=== PATIENT | female | born 1940 | race Caucasian/White ===

== ENCOUNTER 2022-11-11 15:31 | Outpatient (CLI) | payer MEDICARE, SELFPAY | END 2022-11-11 15:32 | disposition home or self-care (01) | LOC: LKVREF 15:32 | PROVIDERS: PCP Physician Assistant Medical; Visit Provider Registered Nurse | DX: R30.0 Dysuria (principal); N39.0 Urinary tract infection, site not specified | CPT/HCPCS: 87086; 87186 ==

== ENCOUNTER 2022-11-20 10:59 | Outpatient (CLI) | payer MEDICARE, SELFPAY | END 2022-11-20 11:00 | disposition home or self-care (01) | LOC: NFLDREF 11-22 14:21 | PROVIDERS: PCP Physician Assistant Medical; Referring Provider Physician Assistant Medical; Visit Provider Physician Assistant Medical | DX: R30.0 Dysuria (principal); N76.0 Acute vaginitis; N93.9 Abnormal uterine and vaginal bleeding, unspecified; E04.9 Nontoxic goiter, unspecified; Z86.73 Personal history of transient ischemic attack (TIA), and cerebral infarction without residual deficits | CPT/HCPCS: 87086 ==

== ENCOUNTER 2022-12-06 11:50 | Outpatient (CLI) | payer MEDICARE, SELFPAY | END 2022-12-06 11:51 | disposition home or self-care (01) | PROVIDERS: PCP Physician Assistant Medical; Referring Provider Physician Assistant Medical; Visit Provider Nurse Practitioner Family | DX: N39.0 Urinary tract infection, site not specified (principal) | CPT/HCPCS: 87086; 87186 ==

== ENCOUNTER 2022-12-16 13:18 | Outpatient (CLI) | payer MEDICARE, SELFPAY ==
--- NOTE | 2022-12-16 14:00 | US_ITS ---
Final Report Patient: EDUARDO MERCER Facility:?[facility] Patient ID:?[id number] Site Patient ID:?[id number]. Site :?1940 Study:?US Pelvis -12/16/2022 2:48:55 PM Ordering Physician:Millie Harris Final Report: INDICATION: Vaginal bleeding COMPARISON: CT 04/20/2019 TECHNIQUE: 2D helton scale and color Doppler images were acquired of the pelvis using a transabdominal approach. FINDINGS: Both ovaries have been removed. No pelvic free fluid. Uterus is atrophied and measures 7.8 x 2.8 x 4.8 cm and contains a few scattered calcifications. The endometrium measures 4 millimeters. Mixed echogenicity associated with the urethra, associated with the distended proximal urethra, likely similar to the prior study. IMPRESSION: Status post bilateral oophorectomy. No uterine fibroid. Endometrium measures 4 millimeters. Dilation of the proximal urethra, as before, with indeterminate mixed echotexture associated with the orifice. Dictated by Alli Sigala MD @ 12/16/2022 3:55:19 PM (Electronic Signature)
--- NOTE | 2022-12-16 14:00 | CRLHL7_ITS ---
For Patients: As a result of the Cures Act, medical imaging exams and procedure reports are released immediately into your electronic medical record. You may view this report before your referring provider. If you have questions, please contact your health care provider. INDICATION: ENLARGED THYROID COMPARISON: 04/14/2018 TECHNIQUE: Temple scale and color Doppler images were acquired of the thyroid gland. FINDINGS: The right lobe measures 6.7 x 1.8 x 3.1 cm and the left lobe measures 10.4 x 5.2 x 5.2 cm in size. The isthmus measures 1 centimeter. Sponge like nodules within the right thyroid lobe are again noted measuring 6 x 6 x 6 millimeters and 2.1 x 1.4 x 1.3 cm. These are benign. Sponge like nodule within the left thyroid lobe has increased in size measuring 9.7 x 3.0 x 6.3 cm, previously measuring 5.3 x 5.2 x 4.1 cm. The color Doppler images demonstrate normal vascularity. There is no evidence of cervical lymphadenopathy or parathyroid mass. IMPRESSION: Enlarged thyroid particularly on the left with a large heterogeneous sponge like nodule within the left thyroid lobe measuring up to 9.7 cm. This has increased in size compared to the 2018 study. Dictated by Alli Sigala MD @ 12/17/2022 11:33:55 AM (Electronically Signed)
--- NOTE | 2022-12-16 15:00 | US_ITS ---
Final Report Patient: EDUARDO MERCER Facility:?[facility] Patient ID:?[id number] Site Patient ID:?[id number]. Site :?[id number] Study:?US Thyroid -12/16/2022 2:50:05 PM Ordering Physician:Millie Harris Final Report: INDICATION: ENLARGED THYROID COMPARISON: 04/14/2018 TECHNIQUE: Temple scale and color Doppler images were acquired of the thyroid gland. FINDINGS: The right lobe measures 6.7 x 1.8 x 3.1 cm and the left lobe measures 10.4 x 5.2 x 5.2 cm in size. The isthmus measures 1 centimeter. Sponge like nodules within the right thyroid lobe are again noted measuring 6 x 6 x 6 millimeters and 2.1 x 1.4 x 1.3 cm. These are benign. Sponge like nodule within the left thyroid lobe has increased in size measuring 9.7 x 3.0 x 6.3 cm, previously measuring 5.3 x 5.2 x 4.1 cm. The color Doppler images demonstrate normal vascularity. There is no evidence of cervical lymphadenopathy or parathyroid mass. IMPRESSION: Enlarged thyroid particularly on the left with a large heterogeneous sponge like nodule within the left thyroid lobe measuring up to 9.7 cm. This has increased in size compared to the 2018 study. Dictated by Alli Sigala MD @ 12/17/2022 11:33:55 AM (Electronic Signature)
== END 2022-12-16 13:19 | disposition home or self-care (01) ==
LOC: US 13:19
PROVIDERS: PCP Physician Assistant Medical; Visit Provider Physician Assistant Medical
DX: N93.9 Abnormal uterine and vaginal bleeding, unspecified (principal); E04.9 Nontoxic goiter, unspecified
CPT/HCPCS: 76536; 76856

== ENCOUNTER 2023-04-19 10:43 | Outpatient (CLI) | payer MEDICARE, SELFPAY | END 2023-04-19 10:44 | disposition home or self-care (01) | LOC: NFLDREF 18:27 | PROVIDERS: PCP Physician Assistant Medical; Referring Provider Physician Assistant Medical; Visit Provider Nurse Practitioner Family | DX: N39.0 Urinary tract infection, site not specified (principal); N30.90 Cystitis, unspecified without hematuria | CPT/HCPCS: 87086; 87186 ==

== ENCOUNTER 2023-05-15 18:03 | Outpatient (CLI) | payer MEDICARE, SELFPAY | END 2023-05-15 18:04 | disposition home or self-care (01) | LOC: NFLDREF 05-16 14:26 | PROVIDERS: PCP Physician Assistant Medical; Referring Provider Physician Assistant Medical; Visit Provider Nurse Practitioner Family | DX: N34.3 Urethral syndrome, unspecified (principal); N30.90 Cystitis, unspecified without hematuria | CPT/HCPCS: 87086; 87186 ==

== ENCOUNTER 2023-06-02 14:32 | Outpatient (CLI) | payer MEDICARE, SELFPAY ==
--- NOTE | 2023-06-02 15:00 | CRLHL7_ITS ---
For Patients: As a result of the Century Cures Act, medical imaging exams and procedure reports are released immediately into your electronic medical record. You may view this report before your referring provider. If you have questions, please contact your health care provider. Indication: ABD PAIN AND SWELLING. LUMP Technique: Postcontrast CT abdomen and pelvis. 82 cc Isovue 370 intravenous contrast. Please note that all CT scans at this facility use dose modulation, iterative reconstruction, and/or weight-based dosing when appropriate to reduce radiation dose to as low as reasonably achievable. Comparison: 04/20/2019 Findings: Lung bases are clear. No pleural effusion. No free intraperitoneal air. 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 Calcified splenic granulomas. No splenomegaly. Small hiatal hernia. No intrahepatic masses. Gallbladder normal. No calcified stones or biliary obstruction. Pancreas normal. Normal adrenal glands. Kidneys are within normal limits. The bladder and ureters are unremarkable. Atherosclerotic changes. No aneurysm. Right paramedian supraumbilical hernia containing fat measuring 4.6 cm. Calcified uterine fibroid. No pelvic mass. No bowel obstruction. No free fluid or abscess. No adenopathy. 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 No compression fracture. Disc space narrowing L4-5. Impression: Right paramidline supraumbilical hernia containing fat measuring 4.6 cm. This is new since the prior study. Please note that all CT scans at this facility use dose modulation, iterative reconstruction, and/or weight-based dosing when appropriate to reduce radiation dose to as low as reasonably achievable. Dictated by Alli Sigala MD @ 06/03/2023 9:52:41 AM (Electronically Signed)
[2023-06-02 15:20] LABS: Creatinine* 0.6 mg/dL (0.5-1.5); Estimated Glomerular Filt Rate 90 ml/min
== END 2023-06-02 14:33 | disposition home or self-care (01) ==
LOC: CT 14:35
PROVIDERS: PCP Physician Assistant Medical; Visit Provider Surgery
DX: R19.00 Intra-abdominal and pelvic swelling, mass and lump, unspecified site (principal); K43.9 Ventral hernia without obstruction or gangrene
CPT/HCPCS: 36415; 74177; 82565; Q9967

== ENCOUNTER 2023-08-26 13:20 | Emergency (ER) | payer MEDICARE, SELFPAY ==
[2023-08-26 13:32] VITALS: BP 161/73; PULSE 88; RESP 18; TEMP 37; O2SAT 97; BMI 28.2
--- NOTE | 2023-08-26 13:42 | CRLHL7_ITS ---
For Patients: As a result of the Century Cures Act, medical imaging exams and procedure reports are released immediately into your electronic medical record. You may view this report before your referring provider. If you have questions, please contact your health care provider. Indication: Fell, hit head Technique: Volumetric multidetector CT images of the head were obtained without the administration of low osmolar intravenous contrast. Comparison: None available Findings: There is no intra-axial or extra-axial fluid collection. There is no mass effect or midline shift. There is age-related cortical atrophy with mild sulcal widening and ex vacuo dilatation of the lateral ventricles. There are minimal calcifications of the basal ganglia. There are chronic small vessel disease changes in the subcortical and periventricular white matter without lost helton-white differentiation. The orbits and their contents are grossly within normal limits. The bony calvarium is grossly intact. The paranasal sinuses are clear. The mastoid air cells are well aerated. Impression: 1. Age-related changes of the brain without acute intracranial abnormality. Please note that all CT scans at this facility use dose modulation, iterative reconstruction, and/or weight-based dosing when appropriate to reduce radiation dose to as low as reasonably achievable. Dictated by Gómez Munoz MD @ 08/26/2023 2:48:58 PM (Electronically Signed)
--- NOTE | 2023-08-26 14:10 | ED.GENADULT ---
HPI - General Adult General Chief complaint: Fall/Minor Trauma Stated complaint: fell yesterday hit her head Time Seen by Provider: 08/26/23 14:06 History of Present Illness HPI narrative: Patient reports slipping yesterday. Fell against glass of business and needed to be assisted up. Patient is prescribed anticoagulant for TIA but has not taken it for one month, is taking asa 81mg BID. No LOC, complains of dull headache, wrist and neck pain. 83-year-old woman presenting to the emergency department following a fall yesterday where she struck her head. Is described actually is an axial load injury though says that she struck the back of her head. Feels just generally sore all over like she took a shock to her system she says. Sore in her right wrist and neck a little bit though not limiting range of motion apparently. History of TIAs and apparently prescribed anticoagulants that she has not taken for a month. Takes a total of 162 mg of aspirin daily. There was no loss of consciousness. Her knees are also sore. She feels that striking her head kept her from injuring other things. Bruising has now developed on the dorsum of the interspace of the 1st and 2nd fingers of her right hand. She is not having much pain there she says. They are worried most about possibility of intracranial bleed. Reviewing records social history of neck pain. Related Data Previous Rx's Medication Instructions Recorded aspirin 25 mg-dipyridamole 200 mg 1 cap PO QPM #90 caps 08/18/23 capsule,ext.release 12 hr multiphase Allergies Allergy/AdvReac Type Severity Reaction Status Date / Time No Known Drug Allergies Allergy Verified 06/02/23 15:59 Review of Systems Status of ROS: Reports: 6 or more systems reviewed and unremarkable except as noted in History and below [facility] Medical History Cystitis ?N30.90 - Cystitis, unspecified without hematuria (ICD-10) Pelvic organ prolapse quantification stage 4 cystocele ?N81.10 - Cystocele, unspecified (ICD-10) Hx-TIA (transient ischemic attack) ?Z86.73 - Personal history of transient ischemic attack (TIA), and cerebral infarction without residual deficits (ICD-10) History of stress test ?Z92.89 - Personal history of other medical treatment (ICD-10) Pain, neck (11/11/08) ?M54.2 - Cervicalgia (ICD-10) Mass of ovary (~2019) ?N83.8 - Other noninflammatory disorders of ovary, fallopian tube and broad ligament (ICD-10) Surgical History Hx of oophorectomy Social History Narrative: Retired. No tobacco or alcohol use. Daughter lives with her. Smoking Status: Never smoker Non-prescribed substance use: denies use Exam Narrative: Exam Narrative: Very pleasant. NAD. Carefully casually groomed. Full head of hair. Head looks to be and feels to be atraumatic. Again describing impact on occipital parietal scalp. Neck is supple and nontender exam. Cranial nerves 2-12 intact. Moving all extremities without difficulty. She has a little bruising in the interspace between the 1st and 2nd finger of the right hand. No palm or bruising. Has good strength flexing and extending at all joints. Back is without tenderness or deformity. Light abrasion over the anterior right knee without effusion. Flexes and extends without difficulty. Const: Vital Signs, click to edit/add: Vital Signs - 24 hr 08/26/23 13:32 Temperature 98.6 F Pulse Rate [Pulse Oximeter] 88 Respiratory Rate 18 Blood Pressure [Ri ght Upper Arm] 161/73 H Pulse Oximetry 97 Oxygen Delivery Me thod Room Air Documenting provider has reviewed patient's vital signs: yes Course Vital Signs Vital signs: Initial Vital Signs Temperature 98.6 F 08/26/23 13:32 Temperature Source Temporal Artery Scan 08/26/23 13:32 Pulse Rate 88 08/26/23 13:32 Respiratory Rate 18 08/26/23 13:32 Blood Pressure 161/73 H 08/26/23 13:32 Blood Pressure Mean 102 08/26/23 13:32 Pulse Oximetry 97 08/26/23 13:32 Oxygen Delivery Method Room Air 08/26/23 13:32 Vital Signs Temperature 98.6 F 08/26/23 13:32 Pulse Rate 88 08/26/23 13:32 Respiratory Rate 18 08/26/23 13:32 Blood Pressure 161/73 H 08/26/23 13:32 Pulse Oximetry 97 08/26/23 13:32 Oxygen Delivery Method Room Air 08/26/23 13:32 Temperature 98.6 F 08/26/23 13:32 Pulse Rate 88 08/26/23 13:32 Respiratory Rate 18 08/26/23 13:32 Blood Pressure 161/73 H 08/26/23 13:32 Pulse Oximetry 97 08/26/23 13:32 Oxygen Delivery Method Room Air 08/26/23 13:32 Medical Decision Making MDM Narrative Medical decision making narrative: Has already by the time I am seeing her been ordered for a CT of the head. I do review this and do not appreciate any acute abnormality. Discuss this with Mirna. We also discussed potentially doing neck imaging though 24 hours later seems relatively comfortable. She would prefer to defer. Pending radiology over-read of the head. Radiology over-read noting senescent changes. Hand/wrist appears to be primarily contusion/sprain. See patient discharge plan Discharge Plan Discharge Clinical Impression: Sprain of wrist, Closed head injury, Abrasion Patient Disposition: Home w/ Parent or Adult Condition: Stable Additional Instructions: Stay well-hydrated and try to get some quality sleep. After hitting your head especially as one considers possibility of concussion, your brain does need to stay hydrated and be well rested. Stretch as best you can over the next few days. You might want to ice your right wrist/thumb area couple of times daily over the next few days. Prescriptions: No Action aspirin-dipyridamole 25-200 mg capsule, ER multiphase 12 hr 1 cap PO QPM Qty: 90 0RF Follow Up/Referrals: Kimberly Villavicencio PA-C [Primary Care Provider] - Stand Alone [facility]: [facility] Info Inst[facility]
== END 2023-08-26 15:26 | disposition home or self-care (01) ==
PROVIDERS: Emergency Provider Family Medicine; PCP Physician Assistant Medical
DX: S09.90XA Unspecified injury of head, initial encounter (principal); S63.501A Unspecified sprain of right wrist, initial encounter; W01.0XXA Fall on same level from slipping, tripping and stumbling without subsequent striking against object, initial encounter
CPT/HCPCS: 70450; 95992; 99283; 99284

== ENCOUNTER 2023-11-20 10:04 | Outpatient (CLI) | payer MEDICARE, SELFPAY ==
--- NOTE | 2023-11-20 10:15 | US_ITS ---
Patient: EDUARDO MERCER Facility:?[facility] Patient ID:?[id number] Site Patient ID:?[id number] Site :?[id number] Study:?US-Thyroid -11/20/2023 11:19:52 AM Ordering Physician:ROBBY Final Report: INDICATION: Follow-up thyroid nodules COMPARISON: 12/17/2019 TECHNIQUE: Temple scale and color Doppler images were acquired of the thyroid gland. FINDINGS: Sponge like nodule within the right thyroid lobe measures 1.7 x 1.2 x 1.1 cm. Previously, this measured 2.1 x 1.4 x 1.3 cm. Smaller sponge like nodule right thyroid lobe measures 6 x 5 x 5 millimeters, previously measuring 6 x 6 x 6 millimeters. Isthmus measures 9 millimeters. Solid and cystic nodule left thyroid lobe 5.1 x 3.7 x 5.0 cm, similar in morphology to the prior study and similar in size when it appeared to measure about 5 cm in retrospect. The right lobe measures 5.8 x 1.9 x 2.1 cm and the left lobe measures 4.4 x 3.4 x 3.1 cm in size. The color Doppler images demonstrate normal vascularity. There is no evidence of cervical lymphadenopathy or parathyroid mass. IMPRESSION: The solid and cystic nodule within the left thyroid lobe is likely similar. Stable spongiform nodules right thyroid lobe. Dictated by Alli Sigala MD @ 11/20/2023 11:35:32 AM Signed by:?Alli Sigala MD @11/20/2023 11:35:32 AM (Electronic Signature)
== END 2023-11-20 10:05 | disposition home or self-care (01) ==
LOC: US 10:04
PROVIDERS: PCP Physician Assistant Medical; Visit Provider Physician Assistant Medical
DX: E04.9 Nontoxic goiter, unspecified (principal)
CPT/HCPCS: 76536

== ENCOUNTER 2023-11-28 18:10 | Outpatient (CLI) | payer MEDICARE, SELFPAY | END 2023-11-28 18:11 | disposition home or self-care (01) | LOC: NFLDREF 12-08 09:45 | PROVIDERS: PCP Physician Assistant Medical; Referring Provider Physician Assistant Medical; Visit Provider Nurse Practitioner Family | DX: N39.0 Urinary tract infection, site not specified (principal) | CPT/HCPCS: 87086; 87186 ==

== ENCOUNTER 2023-12-02 14:28 | Emergency (ER) | payer MEDICARE, SELFPAY ==
[2023-12-02 14:34] VITALS: BP 164/111; PULSE 97; RESP 18; O2SAT 95; BMI 30.2
--- NOTE | 2023-12-02 14:44 | ED.GENADULT ---
HPI - General Adult General Time Seen by Provider: 14:44 Date Seen: 12/02/23 Chief complaint: Dizziness/Vertigo Stated complaint: stroke like symptoms Time Seen by Provider: 12/02/23 14:44 Source: patient, RN notes reviewed and old records reviewed Mode of arrival: ambulatory Limitations: no limitations History of Present Illness HPI narrative: This 83-year-old female is coming in accompanied by her daughter with concerns. She hit her head in August, had a head CT here. Since then she feels like her balance maybe more off, she is complaining of dizzy spells. When trying to get her to decipher this further and when she is asked if it is lightheadedness, sense of imbalance or spinning she states that can be all of them. She also has a sense of brain fog. She feels at times like she might fall over, also talked about times feeling like she might pass out. She has noted no sense of palpitations or irregular heartbeat with this. She states about 12 years ago she had a diagnosis of TIAs where she was having speech difficulty, tongue numbness on 1 side and facial changes on 1 side. She states she has not really had any of these symptoms since being put on Aggrenox. She does reports that she had an episode last summer where she was hospitalized at [facility]. They thought that she was maybe having seizures. She states they did EEG in saw on abnormality. She tried a seizure medicine for about 1 day, did not like how it made her feel and went off of it. Of note on her visit on 08/26/2023 where she slipped and fell and hit her head, she was noted to have been off her Aggrenox for a month but was using aspirin 81 mg twice a day. Related Data Previous Rx's Medication Instructions Recorded cephalexin 500 mg capsule 500 mg PO TID 7 days #21 caps 11/28/23 aspirin 25 mg-dipyridamole 200 mg 1 cap PO QPM #90 caps 12/02/23 capsule,ext.release 12 hr multiphase Allergies Allergy/AdvReac Type Severity Reaction Status Date / Time No Known Drug Allergies Allergy Verified 11/28/23 18:27 Review of Systems Status of ROS: Reports: 6 or more systems reviewed and unremarkable except as noted in History and below [facility] Medical History Cystitis ?N30.90 - Cystitis, unspecified without hematuria (ICD-10) Pelvic organ prolapse quantification stage 4 cystocele ?N81.10 - Cystocele, unspecified (ICD-10) Hx-TIA (transient ischemic attack) ?Z86.73 - Personal history of transient ischemic attack (TIA), and cerebral infarction without residual deficits (ICD-10) History of stress test ?Z92.89 - Personal history of other medical treatment (ICD-10) Pain, neck (11/11/08) ?M54.2 - Cervicalgia (ICD-10) Mass of ovary (~2018) ?N83.8 - Other noninflammatory disorders of ovary, fallopian tube and broad ligament (ICD-10) Surgical History Hx of oophorectomy Social History Narrative: Retired. No tobacco or alcohol use. Daughter lives with her. Smoking Status: Never smoker Do you use any of these nicotine containing products: None How often do you have a drink containing alcohol: never How often do you have six or more drinks on one occasion: Never AUDIT-C Alcohol total score: 0 Non-prescribed substance use: denies use service: Yes Exam Const: Vital Signs, click to edit/add: Vital Signs - 24 hr 12/02/23 14:34 12/02/23 14:50 12/02/23 14:58 Temperature 98.5 F Pulse Rate [Left P ulse Oximeter] 97 Respiratory Rate 18 Blood Pressure [Ri ght Upper Arm] 164/111 H Pulse Oximetry 95 97 Oxygen Delivery Me thod Room Air 12/02/23 16:21 Temperature Pulse Rate [Left P ulse Oximeter] 86 Respiratory Rate 18 Blood Pressure [Ri ght Upper Arm] 154/85 H Pulse Oximetry 97 Oxygen Delivery Me thod Room Air Course Course ED Course: Is a patient with a multitude of symptoms, will get EKG, get full labs including troponin. Will do plain noncontrast head CT. Her symptoms have been present for some time now, this is not an acute stroke code. Will talk to Neurology about her, see what they think with her current symptoms in lieu of her neurology workup this past year. Blood pressure is mildly elevated, did discuss that we typically do not act on blood pressures in the ER unless the patient is hypotensive with specific conditions or significantly hypertensive in specific conditions. Reevaluation(s) Time of Reevaluation #1: 17:13 Reevaluation #1: Have reviewed normal lab work outside pending TSH, head CT without any acute changes. There is certainly no chronic subdural, no evidence of any stroke changes on this head CT. We did review she had a normal troponin, did review that she had a stress test back in 2020. She has many questions, wonders if this could be your heart. She is feeling no palpitations no change such is chest pain. We did review it is always certainly possible. She could have a follow-up stress test ordered by her primary. We discussed the importance of her being on medicine. She is off her Aggrenox again as she ran out a few days ago, is taking b.i.d. aspirin again. I did discuss with the patient that it is imperative for her brain health that she be on this medicine to protect against further strokes. She needs to take an active part in managing her health. It does not do her any good to B off medicines that she needs a on and have complications from it. Preemptive and preventative medicine are the safest. She admits that she has gained all of her weight back that she had lost in the past. We did discuss that this certainly can help lower blood pressure. We did review the need for her blood pressure to be adequately managed. This is something that should be done through primary clinic and there is evidence as based on blood pressures from her hospital stay last year that is been elevated for while. I do not know if she has taken things in the past or been on medicines in the past that she has not tolerated. This is why it is best managed by her primary care provider. We did discuss low-sodium diet. They wanted to know that if she felt like she was going to pass out again tomorrow what to do. This becomes a bit difficult as I can not completely tell them, certainly if it is associated with palpitations chest pain any other symptoms, if she actually does lose her balance or go down to the ground or has full syncope, she certainly needs re-evaluation. I would say if she is feeling the same as she is today and there are no changes, she is probably safe to stay home and continue with outpatient evaluation. She needs to reschedule or follow-up with neurology in get into her primary provider. We did discuss prescription for Keppra or trying Vimpat instead. Her daughter wants her to take a prescription of the Keppra, patient is adamant that she will not started it without talking to the neurologist. We agreed on me sending a hand written prescription for Keppra 500 mg b.i.d., 60 pills with 1 refill. She will have it to start if she is willing. Did discuss patient feeling safe returning to her living environment. She lives with a daughter whom is a nurse. Consultations Consultation #1: Spoke with Dr. Rena Francis Neurology from [facility]. Reviewed patient's current symptoms, she was able to look up her records. She agreed that this was not stroke like. Patient was recommended by Dr. Haas to take Keppra July of 2023. She then saw Dr. Alejo after and sounds if she had decided to not take the medicine. They were questioning seizures versus TIA eyes and were favoring seizure as she was having intermittent left anterior temporal slowing on her EEG. She had a negative MRI and echo last fall. During her hospitalization blood pressure was noted to be 174/93 on 1 of the values that Dr. Francis did comment on after I talked about her blood pressures here. She states patient could be offered to go back on Keppra or consider Vimpat 50 mg b.i.d.. She did recommend further outpatient neurology follow-up. Time: 15:03 Vital Signs Vital signs: Initial Vital Signs Pulse Rate 97 12/02/23 14:34 Pulse Rhythm Regular 12/02/23 14:34 Pulse Strength 3+ Normal 12/02/23 14:34 Respiratory Rate 18 12/02/23 14:34 Blood Pressure 164/111 H 12/02/23 14:34 Blood Pressure Mean 128 H 12/02/23 14:34 Blood Pressure Position Supine 12/02/23 14:34 Pulse Oximetry 95 12/02/23 14:34 Oxygen Delivery Method Room Air 12/02/23 14:34 Vital Signs Pulse Rate 97 12/02/23 14:34 Respiratory Rate 18 12/02/23 14:34 Blood Pressure 164/111 H 12/02/23 14:34 Pulse Oximetry 95 12/02/23 14:34 Oxygen Delivery Method Room Air 12/02/23 14:34 Temperature 98.5 F 12/02/23 14:50 Pulse Rate 86 12/02/23 16:21 Respiratory Rate 18 12/02/23 16:21 Blood Pressure 154/85 H 12/02/23 16:21 Pulse Oximetry 97 12/02/23 16:21 Oxygen Delivery Method Room Air 12/02/23 16:21 Medical Decision Making Lab Data Lab results reviewed: Yes I reviewed the patient's lab results Labs: Lab Results 12/02/23 12/02/23 Range/Units 15:07 15:11 WBC 5.60 (4.50-11.00) K/uL RBC 4.92 (4.00-5.20) m/uL Hgb 14.7 (12.0-16.0) gm/dL Hct 45.1 (33.0-51.0) % MCV 92 (80-100) fL MCH 30 (26-34) pg MCHC 33 (32-36) gm/dL RDW Coeff of Hunter 13.4 (11.5-15.5) % Plt Count 235 (140-440) K/uL Neut % (Auto) 66.4 (42.0-72.0) % Lymph % (Auto) 20.4 (20-44) % Merrick % (Auto) 10.2 (0.0-11.0) % Eos % (Auto) 1.6 (0.0-7.0) % Baso % (Auto) 0.7 (0.0-3.0) % Neut # (Auto) 3.72 (1.7-7.0) K/uL Lymph # (Auto) 1.14 (0.90-2.90) K/uL Merrick # (Auto) 0.60 (0.00-0.90) K/UL Eos # (Auto) 0.09 (0.00-0.50) K/uL Baso # (Auto) 0.04 (0.00-0.30) K/uL Abs Immat Gran (auto) 0.04 (0.00-0.30) K/uL Imm/Tot Granulo (auto) 0.7 % Sodium 140 (135-149) mmol/L Potassium 3.9 (3.6-5.1) mmol/L Chloride 108 (96-114) mmol/L Carbon Dioxide 23 (20-32) mmol/L Anion Gap 9 (7-15) mEq/L BUN 13 (7-30) mg/dL Creatinine 0.5 (0.5-1.5) mg/dL Estimated Creat Clear 40.60 Estimated GFR 94 ml/min Glucose 106 (60-115) mg/dL Calcium 9.6 (8.4-10.6) mg/dL Magnesium 2.1 (1.5-2.6) mg/dL Total Bilirubin 0.9 (0.1-1.5) mg/dL AST 21 (12-35) U/L ALT 17 (4-35) U/L Alkaline Phosphatase 75 (40-150) U/L Troponin I < 0.01 L (0.01-0.04) ng/mL C-Reactive Protein 0.9 (0.5-1.0) mg/dL Total Protein 7.7 (6.0-8.3) g/dL Albumin 4.4 (3.3-5.0) g/dL TSH 1.000 (0.270-4.200) uIU/mL Lab Acknowledgement Test Added Imaging Data CT scan - head: Attestation: I have reviewed the pertinent imaging results. Radiologist's impression: Patient: EDUARDO MERCER Facility:?[facility] Patient ID:?[id number] Site Patient ID:?[id number]. Site :?[id number] Study:?CT Head w/o-12/02/2023 3:31:21 PM Ordering Physician:Yuriy Rose Final Report: INDICATION: Dizziness, brain fog, head pressure TECHNIQUE: Noncontrast axial CT of the head. Coronal and sagittal reformats. Bone and soft tissue algorithms. COMPARISON: CT head 08/26/2023, MRI brain report 04/02/2023 FINDINGS: The ventricles and cortical sulci are mildly prominent, compatible with generalized cerebral volume loss.. No midline shift or mass effect. No acute intracranial hemorrhage or extra-axial fluid collection. Mineralization changes at the globus pallidus. Temple-white matter differentiation is grossly maintained. Unremarkable white matter attenuation. Calcific intracranial atherosclerotic plaquing. Midline structures are unremarkable. Bony calvarium appears grossly intact. Visualized paranasal sinuses and mastoid air cells are clear. Orbits are unremarkable. IMPRESSION: 1. No CT evidence of acute intracranial abnormality or significant interval change relative to 08/26/2023. 2. Mild generalized cerebral volume loss. Please note that all CT scans at this facility use dose modulation, iterative reconstruction, and/or weight-based dosing when appropriate to reduce radiation dose to as low as reasonably achievable. Dictated by Leela Johnson MD @ 12/02/2023 4:05:35 PM (Electronic Signature) ECG Data Attestation: I personally reviewed and interpreted this ECG as follows: (Normal sinus rhythm, 94 beats per minute. Inferior and lateral precordial nonspecific ST segment changes.) Prior ECG tracings: available for review (Compared to EKG from 01/10/2021, believe the ST changes in the inferior leads more prominent as well as those in potentially V4 through V6 now present (maybe slightly there in V6 before).) Interpretation: Patient did have a exercise stress echo on 03/20/2021 that was negative for ischemia but was a technically limited exam. Discharge Plan Discharge Clinical Impression: Brain fog, History of recurrent TIAs, Dizziness, Elevated blood pressure reading Patient Disposition: Home, Self-Care Condition: Stable Instructions: Hypertension (ED), Dizziness (ED), Mediterranean Diet (DC) Additional Instructions: Prescription for Keppra is given if you do decide to started, will be 500 mg twice a day. You need to keep your clinic appointment with your primary care provider, review blood pressure and see if you need to start treatment for hypertension. I have given you met a trainee in diet and hypertension handout. Mediterranean diet is a good overall Heart and vascular healthy diet. You want to observe low-sodium in your diet, this will help with blood pressure as well. You also need to get scheduled for Neurology follow-up, recommend contacting the Neurology group you saw before in getting back in. You may want to consider talking to her primary care provider about doing another cardiac stress test if she feels this is appropriate. In the meantime, if you are having worsening symptoms, actually have his seizure, have chest pain or sense of palpitations/irregular heart rate, do pass out, have further concerns, do think you should be re-evaluated. I did do a screening TSH which is not back. If there is any abnormality to this test I will contact you a bit later today with directions. Prescriptions: No Action cephalexin 500 mg capsule 500 mg PO TID 7 Days Qty: 21 0RF aspirin-dipyridamole 25-200 mg capsule, ER multiphase 12 hr 1 cap PO QPM Qty: 90 0RF Follow Up/Referrals: Kimberly Villavicencio PA-C [Primary Care Provider] - Stand Alone Forms: BrandProject Info Instructions
[2023-12-02 14:50] VITALS: TEMP 36.9
[2023-12-02 14:58] VITALS: O2SAT 97
--- NOTE | 2023-12-02 14:59 | CT_ITS ---
Patient: EDUARDO MERCER Facility:?[facility] Patient ID:?[id number] Site Patient ID:?[id number]. Site :?[id number] Study:?CT-Head w/o-12/02/2023 3:31:21 PM Ordering Physician:?Melanie Rose Final Report: INDICATION: Dizziness, brain fog, head pressure TECHNIQUE: Noncontrast axial CT of the head. Coronal and sagittal reformats. Bone and soft tissue algorithms. COMPARISON: CT head 08/26/2023, MRI brain report 04/02/2023 FINDINGS: The ventricles and cortical sulci are mildly prominent, compatible with generalized cerebral volume loss.. No midline shift or mass effect. No acute intracranial hemorrhage or extra-axial fluid collection. Mineralization changes at the globus pallidus. Temple-white matter differentiation is grossly maintained. Unremarkable white matter attenuation. Calcific intracranial atherosclerotic plaquing. Midline structures are unremarkable. Bony calvarium appears grossly intact. Visualized paranasal sinuses and mastoid air cells are clear. Orbits are unremarkable. IMPRESSION: 1. No CT evidence of acute intracranial abnormality or significant interval change relative to 08/26/2023. 2. Mild generalized cerebral volume loss. Please note that all CT scans at this facility use dose modulation, iterative reconstruction, and/or weight-based dosing when appropriate to reduce radiation dose to as low as reasonably achievable. Dictated by Leela Johnson MD @ 12/02/2023 4:05:35 PM Signed by:?Leela Johnson MD @12/02/2023 4:05:35 PM (Electronic Signature)
[2023-12-02 15:20] LABS: Basophils Absolute Auto 0.04 K/uL (0.00-0.30); Basophils Percent Auto 0.7 % (0.0-3.0); Eosinophils Absolute Auto 0.09 K/uL (0.00-0.50); Eosinophils Percent Auto 1.6 % (0.0-7.0); Hematocrit 45.1 % (33.0-51.0); Hemoglobin* 14.7 gm/dL (12.0-16.0); Immature Granulocytes Abs Auto 0.04 K/uL (0.00-0.30); Immature Granulocytes Pct Auto 0.7 %; Lymphocytes Absolute Auto 1.14 K/uL (0.90-2.90); Lymphocytes Percent Auto 20.4 % (20-44); Mean Corpuscular HGB Conc 33 gm/dL (32-36); Mean Corpuscular Hemoglobin 30 pg (26-34); Mean Corpuscular Volume 92 fL (80-100); Monocytes Percent Auto 10.2 % (0.0-11.0); Neutrophils Absolute Auto 3.72 K/uL (1.7-7.0); Neutrophils Percent Auto 66.4 % (42.0-72.0); Platelet Count* 235 K/uL (140-440); RDW Coefficient of Variation % 13.4 % (11.5-15.5); Red Blood Count 4.92 m/uL (4.00-5.20)
[2023-12-02 15:35] LABS: Albumin* 4.4 g/dL (3.3-5.0); Chloride* 108 mmol/L (96-114)
[2023-12-02 15:36] LABS: Potassium* 3.9 mmol/L (3.6-5.1); Sodium* 140 mmol/L (135-149)
[2023-12-02 15:38] LABS: Creatinine* 0.5 mg/dL (0.5-1.5); Estimated Glomerular Filt Rate 94 ml/min
[2023-12-02 15:39] LABS: Alanine Aminotransferase* 17 U/L (4-35); Alkaline Phosphatase* 75 U/L (40-150); Anion Gap 9 mEq/L (7-15); Aspartate Amino Transferase* 21 U/L (12-35); Bilirubin Total* 0.9 mg/dL (0.1-1.5); Blood Urea Nitrogen* 13 mg/dL (7-30); Calcium* 9.6 mg/dL (8.4-10.6); Carbon Dioxide* 23 mmol/L (20-32); Glucose* 106 mg/dL (60-115); Magnesium* 2.1 mg/dL (1.5-2.6); Total Protein* 7.7 g/dL (6.0-8.3)
[2023-12-02 15:42] LABS: C Reactive Protein* 0.9 mg/dL (0.5-1.0)
[2023-12-02 15:45] LABS: Slide Review Reflex No
[2023-12-02 16:21] VITALS: BP 154/85; PULSE 86; RESP 18; O2SAT 97
[2023-12-02 16:41] LABS: Troponin I* < 0.01 ng/mL (0.01-0.04)
== END 2023-12-02 17:40 | disposition home or self-care (01) ==
PROVIDERS: Emergency Provider Family Medicine; PCP Physician Assistant Medical
DX: R42 Dizziness and giddiness (principal); R03.0 Elevated blood-pressure reading, without diagnosis of hypertension; R41.9 Unspecified symptoms and signs involving cognitive functions and awareness
CPT/HCPCS: 36415; 70450; 80053; 83735; 84443; 84484; 85025; 86140; 93005; 94761; 99284; 99285

== ENCOUNTER 2024-04-12 18:45 | Outpatient (CLI) | payer MEDICARE, SELFPAY | END 2024-04-12 18:46 | disposition home or self-care (01) | LOC: NFLDREF 04-13 11:30 | PROVIDERS: PCP Physician Assistant Medical; Referring Provider Physician Assistant Medical; Visit Provider Physician Assistant | DX: R30.0 Dysuria (principal); N39.0 Urinary tract infection, site not specified | CPT/HCPCS: 87086; 87186 ==

== ENCOUNTER 2024-04-13 16:15 | Outpatient (RCR) | payer MEDICARE, SELFPAY ==
--- NOTE | 2024-01-13 07:55 | PT.OPE ---
PT [facility] Outpatient Eval PT [facility] Outpatient Eval Start: 01/06/24 16:24 Freq: Status: Active Protocol: Document 01/06/24 18:02 BMS (Rec: 01/06/24 18:03 BMS [id number]) E-signed By Jocelyn Pantoja PT Physical Therapy Outpatient Evaluation Insurance Information Recert Due Date 04/04/24 Insurance Name [facility] Insurance Information/Comments MCR advantage Medical Diagnosis R26.89 other abnormalities of gait and mobiliyt Z91.81 hx of falling Treating Diagnosis abnormal gait R26.89 unspecified disorder vestibular function unspecified ear H81.90 generalized weakness M62.81 Referring MD Kimberly Villavicencio, PAJodyC NPI# [id number] Subjective Subjective had TIA, they thought it might be epilepsy, daughter is a nurse said it isnt. TIAs started in 2010, have been on aggrenox adn aspirin, 3 years ago aggrenox got so expensive switched to just aspirin. In March 2023 had TIA, actually 2. have had falls this year. tripped on curb, tried to catch self, hit top of head so hard on window bc L foot caught on curb. think I have been noticing that more. mowed the lawn yestareday that went alright bc was self propelled and something to hang on to. I dont use any walker or cane. no pain, have knee OA. use night light get up for bathroom. have to lean fwd going up stairs bc feels like going to fall bkwd when I stand up straight house is 4 levels so lots of stairs, have 2 steps to get in with no rail. feel comfortable in house. have gained back the 30# I had lost , bc much family stress and family surgeries. live in home with daughter. hx only of OA and TIAs. am self employed. am right handed, do stretches most days. have HTN, blood pressure meds at home but trying to manage it wihtout the meds. have something with my thyroid but is same size as years ago so not going to do anything. TIAs feel like pressure in my head and changes in speech. swallowing wsa ok. have prescription glasses for 1st time cant really see that well. they are for reading wear them all the time. driving is ok. lightheaded sometimes. no numb or tingly. I am tired so easily, not a good sleeper, didnt sleep last night bc I drank a lot of coffee in the evening bc I didnt get any all day. cant walk straight line Current Work Status Retired Preferred Name Mirna Precautions Treatment Precautions/Contraindications Hx TIAs, poss epilepsy patient says not, lives in 4 level home with many steps, lives w dtr. recurrent falls. Therapy Limitations/Systems Review Cognition,Vision,Other Medical Problem Objective Range of Motion cervical rotation ~ 25% loss seated, turns body to turn head. B shoudlers WFL. B knee ext WNL in sitting trunk flex limited by balance. Strength MMT seated L UE 3+/5, L DF 3+/ 5 Balance & Gait GAIT: very narrow NIDHI with gait, almost scissoring but not spastic, near tightrope this does create LOB and path deviation carmen with any dual tasking. Difficulty executing 2+ step commands carmen when distracted. Does require repeat and additional processing time at times, repeatedly mentions she is quite tired as she had coffee last evening then could not sleep. Unable to SLS. step over single fabiola went well better than expected but only when looking at feet. Posture head forward, hip flexion, inc thoracic kyphosis. Sensation/Reflexes DTR quads and achilles L=R Other/Pertinent Objective weakness L hip abduct, minor difference in hip flex, and weakness L DF compared to R. prone hip ext and sidelying hip abduct not assessed this date. Functional Test Performed & Score ABC = 78.1% Activities-specific Balance Confidence (ABC) Scale Summary 1. Walk around the house? Confidence walking around the house: 80 / 100 (80 points) 2. Walk up or down stairs? Confidence walking up or down stairs: 80 / 100 (80 points) 3. Bend over and potato picker a slipper from the front of a closet floor? Confidence bending over (e.g. to potato picker slipper): 90 / 100 (90 points) 4. Reach for a small can off a shelf at eye level? Confidence reaching for a can at eye level: 100 / 100 (100 points) 5. Stand on your tip toes and reach for something above your head? Confidence standing on tip toes, reaching above head: 100 / 100 (100 points) 6. Stand on a chair and reach for something? Confidence standing on a chair and reachin / 100 (70 points) 7. Sweep the floor? Confidence sweeping the floor: 100 / 100 (100 points) 8. Walk outside the house to a car parked in the driveway? Confidence walking outside home to car in driveway: 70 / 100 (70 points) 9. Get into or out of a car? Confidence getting into or out of car: 90 / 100 (90 points) 10. Walk across a parking lot to the mall? Confidence walking across parking lot to mall: 70 / 100 (70 points) 11. Walk up or down a ramp? Confidence walking down a ramp : 60 / 100 (60 points) 12. Walk in a crowded mall where people rapidly walk past you? Confidence walking in crowded mall with people walking rapidly: 90 / 100 (90 points) 13. Are bumped into by people as you walk through the mall? Confidence when bumped into by people walking at mall: 90 / 100 (90 points) 14. Step onto or off of an escalator while you are holding onto a railing? Confidence stepping on or off escalator holding railin / 100 (80 points) 15. Step on/off escalator holding parcels so cannot hold railing? Confidence stepping on or off escalator not holding railing : 40 / 100 (40 points) 16. Walk outside on icy sidewalks? Confidence walking on icy sidewalks: 40 / 100 (40 points) The tools listed on this website do not substitute for the informed opinion of a licensed physician or other health care provider. All scores should be re- checked. Please see our full Terms of Use. Total ABC score: 1250/1600=78.1 percent Assessment Assessment/Impression Patient is pleasant 83 yo female who lives in 4 level home many stairs with daughter . She presents today w c/o loss of balance, difficulty maintaining path with walking, adn falls. She demo loss of VOR focus with R rotation, loss of convergence, lack of awareness of some deficits, has hx of choosing to stop meds or not take meds that are prescribed such as HTN meds. Hx of TIAs, weakness, fatigue, had abnormal EEG while hospitalized for previous TIA/ stroke and was told may be epilepsy. She is appropriate for skilled physical therapy to address balance, gait, functional weakess, vestibular deficits and improve safety and mobility. Will advance home program as able and work in clinic to safely challenge labile surface, EC and floor transfers, modifying prn. Plan of Care Rehabilitation Potential Good Physical Therapy Goals 1) Pt demo I with home program for safety and improved safety awareness, transfers and gait. 2) Patient demo safe and independent floor transfer for recovery from fall and gardening. 3) Pt demo ability to ambulate 300' without evidence of LOB or more than minor path deviation. 4) Pt demo ability to SLS 10 sec for reduced fall risk, each side 5) Pt demo ability to performs standing on airex w EC without LOB for improved ability to navigate uneven ground and dark room. Coordination/Communication With Referral Source,Patient Caregiver Treatment Plan/Direct Interventions Joint Mobilization,Manual Therapy,Neuromuscular Re-ed, Self-Care/Home Management, Therapeutic Activities, Therapeutic Exercises Patient Will Be Discharged From Therapy Completion of LTG(s),Skills Plateau,Independent w/HEP, Independently Progressing Evaluation Billing Untimed Code Treatment Minutes 30 Complexity Moderate Certification Information Initial Certification Date 01/06/24 Ending Certification Date 04/04/24 Physician Comment/Change : Physician NPI Number #
--- NOTE | 2024-04-13 17:26 | PT.OPDN ---
[facility] Daily Note [facility] Daily Note Start: 01/06/24 16:24 Freq: Status: Active Protocol: Document 04/13/24 17:08 BMS (Rec: 04/13/24 17:26 BMS [id number]) E-signed By Jocelyn Pantoja, PT PT OP Daily Progress Note Visit Information Note Type Daily Note Visit Number 9 Insurance Authorized Visits no PA, no visit limits Insurance Information Recert Due Date 07/11/24 Insurance Name [place] [employer] [facility] [place] Insurance Information/Comments MCR advantage Medical Diagnosis R26.89 other abnormalities of gait and mobiliyt Z91.81 hx of falling Treating Diagnosis abnormal gait R26.89 unspecified disorder vestibular function unspecified ear H81.90 generalized weakness M62.81 Referring MD Kimberly Villavicencio, PA-C NPI# [id number] Subjective Preferred Name Mirna Johnson had the grandkids today and that really wiped me out so my balance isnt as good but I think it is some better. cant get off ground outside, in house have to be near something to get up. stairs are more steady but still feel I have to really hold on Precautions Treatment Precautions/Contraindications Hx TIAs, poss epilepsy patient says not, lives in 4 level home with many steps, lives w dtr. recurrent falls. Home Exercise Home Exercise Comments Access Code: [email or web address] URL: [email or web address] Date: 04/13/2024 Prepared by: Jocelyn Pantoja Exercises - Half-Kneeling to Standing - 1-2 x daily - 5-7 x weekly - 1-3 sets - 5-10 reps - Narrow Half-Kneeling Balance - 1-3 x daily - 5-7 x weekly - 1-3 sets - stretches: hold 30-60 sec stretch - Single Leg Balance with Alternating Floor Reaches - 1 -3 x daily - 5-7 x weekly - 1- 3 sets - 10-20 reps Access Code: [email or web address] URL: [email or web address] Date: 03/23/2024 Prepared by: Jocelyn Pantoja Exercises - Half-Kneeling to Standing - 1-3 x daily - 5-7 x weekly - 1-3 sets - 10-20 reps - strength: 5-10 sec hold - Sit to Stand on Foam Pad - 1-3 x daily - 5-7 x weekly - 1 -3 sets - 10-20 reps - strength: 5-10 sec hold - stretches: hold 30-60 sec stretch - Single Leg Stance on Foam Pad - 1-3 x daily - 5-7 x weekly - 1-3 sets - 10-20 reps - strength: 5-10 sec hold - stretches: hold 30-60 sec stretch Access Code: [email or web address] URL: [email or web address] Date: 03/12/2024 Prepared by: Jocelyn Pantoja Exercises - Single Leg Balance with Alternating Floor Reaches - 1 -3 x daily - 5-7 x weekly - 1- 3 sets - 10-20 reps - Standing to Half Kneel with Chair Support - 1-3 x daily - 5-7 x weekly - 1-3 sets - 10- 20 reps - Half Tandem Stance Balance with Head Rotation - 1-3 x daily - 5-7 x weekly - 1-3 sets - 10-20 reps - Box Lift from Ground with Pelvic Floor Contraction - 1- 3 x daily - 5-7 x weekly - 1-3 sets - 10-20 reps add: patient indicates intention to buy ankle weights bc liked the ex so much Access Code: [email or web address] URL: [email or web address] Date: 03/04/2024 Prepared by: Jocelyn Pantoja Exercises - Standing Hip Abduction with Ankle Weight - 1-3 x daily - 5-7 x weekly - 1-3 sets - 10- 20 reps - strength: 5-10 sec hold - Standing Hip Extension with Ankle Weight - 1-3 x daily - 5-7 x weekly - 1-3 sets - 10- 20 reps - strength: 5-10 sec hold - Step Sideways with Arms Reaching - 1-3 x daily - 5-7 x weekly - 1-3 sets - 10-20 reps - strength: 5-10 sec hold Objective Patient Instructed in Risks/Benefits Yes Therapeutic Exercise Therapeutic Exercise Minutes (minutes) 10 Therapeutic Exercise: To Restore nustep 6 min level 5 Functional Status slant board stretches 2 x 45 sec step ups 6 x 10, down x 10 each side Neuromuscular Re-Ed Neuromuscular Reeducation Minutes ( 30 minutes) Neuromuscular Reeducation Comments Access Code: [email or web address] URL: [email or web address] Date: 04/13/2024 Prepared by: Jocelyn Pantoja Exercises - Half-Kneeling to Standing - 1-2 x daily - 5-7 x weekly - 1-3 sets - 5-10 reps - Narrow Half-Kneeling Balance - 1-3 x daily - 5-7 x weekly - 1-3 sets - stretches: hold 30-60 sec stretch - Single Leg Balance with Alternating Floor Reaches - 1 -3 x daily - 5-7 x weekly - 1- 3 sets - 10-20 reps in clinic also: - stepping stones variety of sizes, patterns, and integrating floor between steps then direct from stepping stone to stepping stone. -backward walking - treadmill amb 1.5mph with B UE support x 2 min then without hanging on x 3-5 min. retrowalk on treadmill 0.5-0.8 mph (not able to execute 0.8 safely without therapist assist) Treatment Minutes Timed Code Treatment Minutes 40 Total Treatment Time 40 Billing Units Neuromuscular Reeducation Units 2 Therapeutic Exercise Units 1 Assessment/Impression Assessment/Impression patient is progressing well - stepping stone work significantly improved this date. LOB with EC on airex and with marching on airex. DId work on squat lifts for work in garden, on half kneel balance and for rising from half kneeling as she lives alone and needs to be able to get up from ground and floor. Only able to perform with heavy use of UE on plinth, instructed to continue to work on this using her own knee for increased independence and fall recovery living alone. patient much better than initial eval in terms of balance and activity tolerance , however recommend she make time for these specific exercises at least 1x every other day. plan to follow up in 1 month to assess ability to self manage, anticipate DC at that time unless she has regressed or had a fall. Plan of Care Physical Therapy Goals intermittent 1) Pt demo I with home program for safety and improved safety awareness, transfers and gait. met with table for assist, ADVANCED GOAL TO PERFORM WITHOUT USE OF CHAIR OR STOOL OR TABLE 2) Patient demo safe and independent floor transfer for recovery from fall and gardening. mild path deviation but inc tolerance and balance 3) Pt demo ability to ambulate 300' without evidence of LOB or more than minor path deviation . progressing 8 sec 4) Pt demo ability to SLS 10 sec for reduced fall risk, each side progressing but only able x 6 sec w NBOS 5) Pt demo ability to performs standing on airex w EC without LOB for improved ability to navigate uneven ground and dark room. Daily Plan of Care Continue per POC Daily Plan of Care Comments Patient is appropriate for skilled physical therapy to improve mobility, balance, gait and safety to continue to live in own multilevel home performing all ADLs and IADLs safely. Recertification Information Initial Certification Date 01/06/24 Recertification Start Date 04/13/24 Recertification Due Date 07/11/24 Reasons to Continue Skilled Therapy progressing well with activity tolerance, functional strength and balance however is at fall risk in performing home maintenance, caring for dependent grandchildren and navigating uneven terrain including stepping stones and hills in yard, patient lives alone in split level home Rehabilitation Potential good Continued Plan of Care and Interventions ther activity, floor transfers continue, neuro re-ed for dynamic balance training in challenged conditions, ther ex for functional strengthening and self snf mgmt, gait prn Provider Signature Shows Agreement With POC & Medical Necessity Physician Comment/Change Comment or Changes
== END 2024-08-11 23:59 | disposition home or self-care (01) ==
PROVIDERS: PCP Physician Assistant Medical; Visit Provider Physician Assistant Medical
DX: R26.89 Other abnormalities of gait and mobility (principal); Z91.81 History of falling; Z51.89 Encounter for other specified aftercare
CPT/HCPCS: 97110; 97112; 97116; 97162

== ENCOUNTER 2024-05-16 10:05 | Outpatient (CLI) | payer MEDICARE, SELFPAY | END 2024-05-16 10:06 | disposition home or self-care (01) | LOC: NFLDREF 05-17 06:59 | PROVIDERS: PCP Physician Assistant Medical; Referring Provider Physician Assistant Medical; Visit Provider Nurse Practitioner Family | DX: R30.0 Dysuria (principal) | CPT/HCPCS: 87086; 87186 ==

== ENCOUNTER 2024-07-09 15:49 | Outpatient (CLI) | payer MEDICARE, SELFPAY | END 2024-07-09 15:50 | disposition home or self-care (01) | LOC: NFLDREF 15:50 | PROVIDERS: PCP Physician Assistant Medical; Visit Provider Obstetrics & Gynecology | DX: R30.0 Dysuria (principal); N39.0 Urinary tract infection, site not specified | CPT/HCPCS: 87086 ==

== ENCOUNTER 2025-08-16 15:24 | Outpatient (CLI) | payer OTHER, SELFPAY | END 2025-08-16 15:25 | disposition home or self-care (01) | LOC: NFLDREF 08-22 19:26 | PROVIDERS: PCP Physician Assistant Medical; Referring Provider Physician Assistant Medical; Visit Provider Obstetrics & Gynecology | DX: R30.9 Painful micturition, unspecified (principal); N39.0 Urinary tract infection, site not specified | CPT/HCPCS: 87086 ==

== ENCOUNTER 2025-08-24 09:53 | Outpatient (CLI) | payer OTHER, SELFPAY | END 2025-08-24 09:54 | disposition home or self-care (01) | LOC: NFLDREF 08-30 16:03 | PROVIDERS: PCP Physician Assistant Medical; Referring Provider Physician Assistant Medical; Visit Provider Physician Assistant Medical | DX: I10 Essential (primary) hypertension (principal); N39.0 Urinary tract infection, site not specified | CPT/HCPCS: 80053; 80061; 84439; 84443 ==